=== PATIENT | female | born 1985 | race Caucasian/White ===

== ENCOUNTER → 2020-06-13 | Outpatient (CLI) | payer OTHER ==
[~2020-06-13] MED LIST: AUGMENTIN 875875 MG PO; CLARITIN10 MG PO; FLONASE 0.05% 121 EA NAS; PREDNICOT20 MG PO; ROBITUSSIN AC 110 ML PO
== END | disposition home or self-care (01) ==
LOC: MAMMO 08:33
PROVIDERS: ATTEND Nurse Practitioner Family
DX: N63.20 Unspecified lump in the left breast, unspecified quadrant (principal)

== ENCOUNTER 2020-11-08 10:13 | Emergency (ER) | payer OTHER ==
[~2020-11-08] VITALS: Ht 167.6 cm; Wt 69.9 kg
[2020-11-08 11:09] LABS: CLARITY Cloudy (Clear); COLOR Orange (Yellow); GLUCOSE Negative (Negative)
[2020-11-08 11:12] LABS: BILIRUBIN 2+ (Negative); BLOOD Trace-Intact (Negative); KETONE 1+ (Negative); LEUKO ESTERASE 1+ (Negative); NITRITE Positive (Negative); SPECIFIC GRAVITY 1.025 (1.001-1.030)
[2020-11-08 11:28] LABS: BACTERIA 3+; WBC 21-30 wbc/hpf (0-5)
[2020-11-08 12:46] LABS: BASO % 0.1 % (0.0-1.0); HEMATOCRIT 38.6 % (37.0-47.0); LYMPH # 0.9 10*3/uL (1.3-4.4); LYMPH % 9.4 % (27.0-41.0); MEAN CELL VOLUME 94.4 fl (81.0-99.0); MEAN CORPUSCULAR HGB 30.6 pg (27.0-31.0); MEAN CORPUSCULAR HGB CONC 32.4 g/dl (33.0-37.0); MEAN PLATELET VOLUME 10.1 fl (9.6-12.3); MONO # 0.6 10*3/uL (0.1-1.0); MONO % 5.8 % (3.0-9.0); NEUT # 8.1 10*3/uL (2.3-7.9); NEUT % 84.2 % (47.0-73.0); PLATELET COUNT AUTOMATED 185 10*3/uL (130-400); RED BLOOD COUNT 4.09 10*6/uL (4.10-5.10); RED CELL DISTRI WIDTH 12.9 % (0-14.5); WHITE BLOOD COUNT 9.6 10*3/uL (4.8-10.8)
[2020-11-08 13:05] LABS: ALBUMIN 3.6 gm/dl (3.1-4.5); ALKALINE PHOSPHATASE 73 U/L (45-117); BUN 11 mg/dl (7-24); CHLORIDE 107 mmol/L (98-107); CREATININE 0.86 mg/dL (0.55-1.02); LIPASE 215 U/L (73-393); POTASSIUM 3.2 mmol/L (3.5-5.1); SGOT/AST 19 IU/L (3-35); SGPT/ALT 26 U/L (12-78); SODIUM 137 mmol/L (136-145); TOTAL PROTEIN 7.3 gm/dL (6.4-8.2)
[2020-11-08] MEDS ORDERED: SEPTDS PO (13:43)
[2020-11-08] MEDS ORDERED: PYRIDIUM200 M1 PO (13:43)
== END 2020-11-08 13:45 | disposition home or self-care (01) ==
LOC: ED 10:13
PROVIDERS: Emergency Medicine; Physician Assistant
DX: N39.0 Urinary tract infection, site not specified (principal); Z79.899 Other long term (current) drug therapy; Z87.442 Personal history of urinary calculi

== ENCOUNTER 2021-12-01 21:58 | Emergency (ER) | payer OTHER ==
[~2021-12-01] VITALS: Ht 167.6 cm; Wt 72.1 kg
[~2021-12-01 21:58] MED LIST changes: +PYRIDIUM200 M1 PO; +SEPTDS PO
[2021-12-01 22:36] LABS: BASO % 0.3 % (0.0-1.0); EOS # 0.1 10*3/uL (0.0-0.4); EOS % 0.9 % (1.0-4.0); HEMATOCRIT 39.8 % (37.0-47.0); LYMPH # 4.1 10*3/uL (1.3-4.4); LYMPH % 40.4 % (27.0-41.0); MEAN CELL VOLUME 91.5 fl (81.0-99.0); MEAN CORPUSCULAR HGB 29.9 pg (27.0-31.0); MEAN CORPUSCULAR HGB CONC 32.7 g/dl (33.0-37.0); MEAN PLATELET VOLUME 9.8 fl (9.6-12.3); MONO # 0.8 10*3/uL (0.1-1.0); MONO % 8.1 % (3.0-9.0); NEUT # 5.1 10*3/uL (2.3-7.9); NEUT % 50.2 % (47.0-73.0); PLATELET COUNT AUTOMATED 295 10*3/uL (130-400); RED BLOOD COUNT 4.35 10*6/uL (4.10-5.10); RED CELL DISTRI WIDTH 12.6 % (0-14.5); WHITE BLOOD COUNT 10.1 10*3/uL (4.8-10.8)
[2021-12-01 22:48] LABS: BUN 13 mg/dl (7-24); CHLORIDE 112 mmol/L (98-107); CREATININE 0.83 mg/dL (0.55-1.02); POTASSIUM 3.5 mmol/L (3.5-5.1); SODIUM 141 mmol/L (136-145)
[2021-12-01 22:53] LABS: B-hCG (QUALITATIVE) NEGATIVE (NEGATIVE)
[2021-12-01 23:01] LABS: BILIRUBIN 1+ (Negative); CLARITY Turbid (Clear); GLUCOSE Negative (Negative)
[2021-12-01 23:02] LABS: KETONE Trace (Negative)
[2021-12-01 23:03] LABS: BLOOD 2+ (Negative); CALCIUM OXALATE CRYSTALS 1+; COLOR Red (Yellow); EPITHELIAL CELLS TNTC; LEUKO ESTERASE 1+ (Negative); NITRITE Positive (Negative); RBC 16-20 rbc/hpf (0-2); SPECIFIC GRAVITY > 1.030 (1.001-1.030); UROBILINOGEN 0.2 E.U./dl (0.0-1.0)
[2021-12-01 23:04] LABS: BACTERIA 1+
== END 2021-12-02 02:16 | disposition home or self-care (01) ==
LOC: ED 21:58
PROVIDERS: Emergency Medicine
DX: N20.1 Calculus of ureter (principal)